=== PATIENT | male | born 1975 | race Caucasian/White ===

== ENCOUNTER 2017-10-24 19:23 | Emergency (ER) | payer OTHER ==
[~2017-10-24 19:23] MED LIST: ALBU90OI INH; ALPR1 PO; AMIT25 PO; AZIT250 PO; BUSP15 PO; Bactrim Ds Tab1 EACH PO; CEPH500 PO; CIPR500 PO; CLON.2TP TP; CLON1 PO; CYCL10 PO; Cleocin HCl150 MG PO; Crutch1 EACH MISC; DICY20 PO; DIPH50 PO; GABA100 PO; HYDACE10B PO; HYDACE5 PO; HYDCOR1TC TOP; IBUP600 PO; Keflex500 MG PO; LISI20 PO; LISINOPRIL; MEDICAL MARIJUANA; METR500 PO; MUPI2TC TOP; NAPR500 PO; OMEP20ER PO; ONDA4 PO; ONDA4ODT MM; ONDA8 PO; ONDA8ODT MM; OXYACE5T PO; PRED10 PO; PROM25 PO; Peri-Colace Ta1 EACH PO; RXHYDACE PO; RXONDA4ODT MM; RXOXYACE PO; RXPROACE PO; RXPROM25 PO; RXTRAM50 PO; SULTRIDS PO; SUMA25 PO; TRAM50 PO; Ultram50 MG PO; Vibramycin100 MG PO; Zithromax250 MG PO; Zofran Odt4 MG SL
== END 2017-10-24 20:04 | disposition left against medical advice (07) ==
LOC: ER 19:23
DX: Z53.21 Procedure and treatment not carried out due to patient leaving prior to being seen by health care provider (principal)

== ENCOUNTER 2018-02-09 19:58 | Emergency (ER) | payer OTHER ==
[~2018-02-09] VITALS: Ht 185.4 cm; Wt 90.7 kg
== END 2018-02-09 21:27 | disposition home or self-care (01) ==
LOC: ER 19:58
DX: S60.221A Contusion of right hand, initial encounter (principal); Z88.8 Allergy status to other drugs, medicaments and biological substances; Z79.899 Other long term (current) drug therapy; F32.9 Major depressive disorder, single episode, unspecified; F31.9 Bipolar disorder, unspecified; F17.210 Nicotine dependence, cigarettes, uncomplicated; W23.0XXA Caught, crushed, jammed, or pinched between moving objects, initial encounter
CPT/HCPCS: 29125; 73130; 96372; 99283; J1885

== ENCOUNTER 2019-04-29 15:31 | Observation (INO) | payer OTHER ==
[~2019-04-29] VITALS: Ht 182.9 cm; Wt 90.7 kg
[2019-04-29 16:10] LABS: BASOPHILS ABSOLUTE AUTO 0.04 K/mm3 (0.00-0.23); BASOPHILS PERCENT AUTO 1 % (0-2); EOSINOPHILS ABSOLUTE AUTO 0.24 K/mm3 (0.00-0.68); EOSINOPHILS PERCENT AUTO 3 % (0-6); Hematocrit 49.9 % (37.0-53.0); Hemoglobin 16.3 g/dL (13.5-17.5); IMMATURE GRAN ABSOLUTE AUTO 0.06 K/mm3 (0.00-0.10); IMMATURE GRAN PERCENT AUTO 1 % (0-1); LYMPHOCYTES ABSOLUTE AUTO 2.07 K/mm3 (0.84-5.20); LYMPHOCYTES PERCENT AUTO 23 % (21-46); MONOCYTES ABSOLUTE AUTO 0.72 K/mm3 (0.16-1.47); MONOCYTES PERCENT AUTO 8 % (4-13); Mean Corpuscular HGB 29.6 pg (26.0-34.0); Mean Corpuscular HGB Conc 32.7 g/dL (31.5-36.5); Mean Corpuscular Volume 91 fL (80-100); Mean Platelet Volume 9.1 fL (9.1-12.4); NEUTROPHILS ABSOLUTE AUTO 5.72 K/mm3 (1.96-9.15); NEUTROPHILS PERCENT AUTO 65 % (41-73); Platelet Count 218 K/mm3 (150-400); RDW Coefficient Variation 12.7 % (11.7-14.2); RDW Standard Deviation 42.3 fL (35.1-46.3); Red Blood Cell Count 5.51 M/mm3 (4.30-5.90); White Blood Cell Count 8.85 K/mm3 (4.00-11.30)
[2019-04-29 16:37] LABS: Alanine Aminotransfer (ALT/SGP 40 U/L (12-78); Albumin, Blood 4.2 g/dL (3.4-5.0); Albumin/Globulin Ratio 1.1 (0.8-1.8); Alk Phos 73 U/L (50-136); Anion Gap 6 mmol/L (6-16); Aspartate Aminotrans (AST/SGOT 34 U/L (12-37); Bilirubin, Total 0.4 mg/dL (0.1-1.0); Blood Urea Nitrogen 14 mg/dL (8-24); Bun/Creatinine Ratio 12.2 (12.0-20.0); CO2, Blood 25 mmol/L (21-32); Chloride, Blood 109 mmol/L (98-108); Creatinine, Blood 1.15 mg/dL (0.60-1.20); Globulin, Blood 3.7 g/dL (2.2-4.0); Glomerular Filtration Rate >60 (60-); Glucose, Blood 142 mg/dL (70-99); Potassium, Blood 4.5 mmol/L (3.5-5.5); Sodium, Blood 140 mmol/L (136-145); Total Protein, Blood 7.9 g/dL (6.4-8.2)
[2019-04-29 17:45] LABS: Source, Urine Clean Catch
[2019-04-29 17:55] LABS: Bilirubin, Urine Neg (Neg); Blood, Urine Neg (Neg); Glucose Qualitative, Urine Neg (Neg); Ketones, Urine Neg (Neg); Leukocyte Esterase, Urine Neg (Neg); Nitrite, Urine Neg (Neg); Protein, Urine 2+ (Neg); Urobilinogen, Urine NORM (Normal)
[2019-04-29 18:02] LABS: Appearance, Urine Clear (Clear); Color, Urine Yellow (P-Yellow)
[2019-04-29 18:16] LABS: Bacteria Rare /hpf; Red Blood Cells, Urine 0-2 /hpf (0-2); Squamous Epithelial Cells Rare /hpf (Few); White Blood Cells, Urine 0-2 /hpf (0-5)
[2019-04-30 04:39] LABS: Hematocrit 44.2 % (37.0-53.0); Hemoglobin 14.3 g/dL (13.5-17.5); Mean Corpuscular HGB 28.9 pg (26.0-34.0); Mean Corpuscular HGB Conc 32.4 g/dL (31.5-36.5); Mean Corpuscular Volume 90 fL (80-100); Mean Platelet Volume 9.2 fL (9.1-12.4); Platelet Count 193 K/mm3 (150-400); RDW Standard Deviation 42.4 fL (35.1-46.3); Red Blood Cell Count 4.94 M/mm3 (4.30-5.90); White Blood Cell Count 6.84 K/mm3 (4.00-11.30)
--- NOTE | 2019-04-30 05:01 | NUR ---
SHIFT SUMMARY PT HAD SOME DISCOMFORT UPON ARRIVAL TO FLOOR. PT TX PER EMAR WITH GOOD RELIEF. PT HAS SLEPT WELL FOR REST OF SHIFT. PT CURRENTLY SLEEPING IN NO DISTRESS. CALL LIGHT IN REACH.
[2019-04-30 05:05] LABS: Alanine Aminotransfer (ALT/SGP 35 U/L (12-78); Albumin, Blood 3.4 g/dL (3.4-5.0); Alk Phos 65 U/L (50-136); Anion Gap 7 mmol/L (6-16); Aspartate Aminotrans (AST/SGOT 18 U/L (12-37); Bilirubin, Total 0.5 mg/dL (0.1-1.0); Blood Urea Nitrogen 14 mg/dL (8-24); Bun/Creatinine Ratio 16.1 (12.0-20.0); CO2, Blood 25 mmol/L (21-32); Calcium, Blood 7.8 mg/dL (8.5-10.1); Chloride, Blood 109 mmol/L (98-108); Creatinine, Blood 0.87 mg/dL (0.60-1.20); Globulin, Blood 3.3 g/dL (2.2-4.0); Glomerular Filtration Rate >60 (60-); Glucose, Blood 124 mg/dL (70-99); Potassium, Blood 3.9 mmol/L (3.5-5.5); Sodium, Blood 141 mmol/L (136-145); Total Protein, Blood 6.7 g/dL (6.4-8.2)
[2019-04-30] MEDS ORDERED: DOCU100 PO (10:19)
[2019-04-30] MEDS ORDERED: HYDR1TAB94 PO (10:20)
[2019-04-30] MEDS ORDERED: IBUP800 PO (10:21)
--- NOTE | 2019-04-30 10:38 | NUR ---
PT HAS ORDERS TO DC HOME. ALL MEDICATIONS AND INSTRUCTIONS REVIEWED WITH PT AND HIS MOM. THEY BOTH VERBALIZE AN UNDERSTANDING. CASE MANAGEMENT SET UP A PCP AND F/U APPT AT [facility] AND APPT DATE AND TIME ALONG WITH NEW PATIENT PACKET WAS GIVEN TO PTS MOM. PT STATES HE IS JUST WAITING ON HIS RIDE.
--- NOTE | 2019-04-30 17:23 | NUR ---
SHIFT SUMMARY: PT HAS BEEN IN HIS ROOM WITH HIS MOM AT THE BEDSIDE FOR THE DAY WAITING ON HIS RIDE HOME. THIS NURSE CHECKED IN WITH PT AND MOM THROUGHOUT THE DAY TO FIND OUT THE STATUS OF THE RIDE AND THEY STATED EACH TIME THAT SHE WAS ON THE WAY. CHARGE NURSE IS AWARE. DC PACKET HAS BEEN REVIEWED WITH PT ALONG WITH REMOVAL OF IV.
--- NOTE | 2019-04-30 17:31 | NUR ---
PT DCD HOME WITH ALL PERSONAL BELONGINGS.
== END 2019-04-30 17:30 | disposition home or self-care (01) ==
LOC: ER 15:31 → MEDS 15:32 → ER 21:20 → MEDS 21:20 → ENPENDDIS 04-30 09:42 → MEDS 04-30 10:03
PROVIDERS: Physician Assistant; ADMIT Internal Medicine
DX: S32.019A Unspecified fracture of first lumbar vertebra, initial encounter for closed fracture (principal); S01.01XA Laceration without foreign body of scalp, initial encounter; S80.12XA Contusion of left lower leg, initial encounter; S80.11XA Contusion of right lower leg, initial encounter; M51.37 Other intervertebral disc degeneration, lumbosacral region; F31.9 Bipolar disorder, unspecified; K21.9 Gastro-esophageal reflux disease without esophagitis; G43.909 Migraine, unspecified, not intractable, without status migrainosus; F17.210 Nicotine dependence, cigarettes, uncomplicated; Z79.899 Other long term (current) drug therapy; Z88.8 Allergy status to other drugs, medicaments and biological substances; Z87.19 Personal history of other diseases of the digestive system; Y04.2XXA Assault by strike against or bumped into by another person, initial encounter
CPT/HCPCS: 12002; 36415; 70450; 71046; 74177; 80053; 81001; 85025; 85027; 96361-59; 96374-59; 96375-59; 96376-59; 99285-25; G0378; J1170; J1650; J1885; J2405; J3010; J7030; Q9967

== ENCOUNTER 2019-05-07 15:11 | Emergency (ER) | payer OTHER ==
[~2019-05-07] VITALS: Ht 182.9 cm; Wt 90.7 kg
[~2019-05-07 15:11] MED LIST changes: +DOCU100 PO; +HYDR1TAB94 PO; +IBUP800 PO
== END 2019-05-07 15:55 | disposition home or self-care (01) ==
LOC: ER 15:11
DX: S01.01XD Laceration without foreign body of scalp, subsequent encounter (principal); Z88.8 Allergy status to other drugs, medicaments and biological substances; Z79.899 Other long term (current) drug therapy; F31.9 Bipolar disorder, unspecified; G43.909 Migraine, unspecified, not intractable, without status migrainosus; F17.210 Nicotine dependence, cigarettes, uncomplicated